=== PATIENT | female | born 1980 | race Caucasian/White ===

== ENCOUNTER 2020-10-08 10:48 | Inpatient (IN) | payer MEDICARE, OTHER ==
[~2020-10-08] VITALS: Ht 160 cm; Wt 86.2 kg
[~2020-10-08 10:48] MED LIST: PHENERGAN 25 MG25 M1 PO
[2020-10-08] MEDS ORDERED: HYDROCODONE-AC1 EAC1 PO (14:33)
[2020-10-08] MEDS ORDERED: TRESIBA FL100 UNIT/1 SC (14:33)
[2020-10-08] MEDS ORDERED: DRISDOL1250 MCG PO (14:34)
[2020-10-08] MEDS ORDERED: LOPRESSOR50 MG PO (14:35)
[2020-10-08] MEDS ORDERED: GLUCOPHAGE1000 MG PO (14:35)
[2020-10-08] MEDS ORDERED: CRESTOR10 MG PO (14:35)
[2020-10-08] MEDS ORDERED: SYNTHROID137 MCG PO (14:35)
[2020-10-08] MEDS ORDERED: ADDERALL XR 1010 MG PO (14:36)
[2020-10-08] MEDS ORDERED: NOVOLOG FL100 UNIT/1 SC (14:37)
[2020-10-08] MEDS ORDERED: ADDERALL 10 MG10 MG PO (14:37)
[2020-10-08 14:47] LABS: HEMOGLOBIN 10.7 gm/dl (12.3-15.3); RED BLOOD COUNT 3.6 M/UL (4.00-5.10); WHITE BLOOD COUNT 9.2 K/UL (4.5-11.0)
[2020-10-08 15:08] LABS: BUN/CREATININE RATIO 13 (0-10)
[2020-10-09 04:00] LABS: HEMOGLOBIN 9.6 gm/dl (12.3-15.3)
[2020-10-09 04:05] LABS: RED BLOOD COUNT 3.23 M/UL (4.00-5.10)
[2020-10-09 04:25] LABS: BUN/CREATININE RATIO 22 (0-10)
[2020-10-10 05:26] LABS: BUN/CREATININE RATIO 29 (0-10)
[2020-10-11 03:02] LABS: HEMOGLOBIN 9.6 gm/dl (12.3-15.3); RED BLOOD COUNT 3.25 M/UL (4.00-5.10)
[2020-10-11 03:15] LABS: WHITE BLOOD COUNT 13.6 K/UL (4.5-11.0)
[2020-10-11 03:32] LABS: BUN/CREATININE RATIO 30 (0-10)
[2020-10-11] MEDS ORDERED: DECADRON6 MG PO (12:45)
[2020-10-11] MEDS ORDERED: ELIQUIS2.5 MG PO (12:45)
== END 2020-10-11 16:15 | disposition home or self-care (01) | DRG 177 ==
LOC: ER1 10:48 → M/S 13:44 → CDU 13:44 → M/S 22:00
PROVIDERS: Emergency Medicine; ADMIT Internal Medicine Infectious Disease
PROC: 8E0ZXY6 Isolation (ICD-10-PCS; principal; 2020-10-08)
PROC: XW13325 Transfusion of Convalescent Plasma (Nonautologous) into Peripheral Vein, Percutaneous Approach, New Technology Group 5 (ICD-10-PCS; 2020-10-08)
DX: U07.1 COVID-19 (principal); J12.82 Pneumonia due to coronavirus disease 2019; J96.01 Acute respiratory failure with hypoxia; E87.3 Alkalosis; G47.419 Narcolepsy without cataplexy; D47.3 Essential (hemorrhagic) thrombocythemia; E11.42 Type 2 diabetes mellitus with diabetic polyneuropathy; E11.65 Type 2 diabetes mellitus with hyperglycemia; I10 Essential (primary) hypertension
CPT/HCPCS: 36415; 36600; 71045; 80048; 80053; 82803; 82962; 83036; 83735; 84443; 85025; 85379; 86900; 86901; 86927; 93005; 96372; 96374; 99285; J1100; J1650; J7030; U0002

== ENCOUNTER 2021-01-24 17:32 | Inpatient (IN) | payer MEDICARE, OTHER ==
[~2021-01-24] VITALS: Ht 162.6 cm; Wt 81.6 kg
[~2021-01-24 17:32] MED LIST changes: +ADDERALL 10 MG10 MG PO; +ADDERALL XR 1010 MG PO; +CRESTOR10 MG PO; +DECADRON6 MG PO; +DRISDOL1250 MCG PO; +ELIQUIS2.5 MG PO; +GLUCOPHAGE1000 MG PO; +HYDROCODONE-AC1 EAC1 PO; +LOPRESSOR50 MG PO; +NOVOLOG FL100 UNIT/1 SC; +SYNTHROID137 MCG PO; +TRESIBA FL100 UNIT/1 SC
[2021-01-24 17:54] LABS: HEMOGLOBIN 12.9 gm/dl (12.3-15.3); RED BLOOD COUNT 4.56 M/UL (4.00-5.10)
[2021-01-24 18:30] LABS: BUN/CREATININE RATIO 16 (0-10)
[2021-01-25 04:53] LABS: HEMOGLOBIN 12.5 gm/dl (12.3-15.3); RED BLOOD COUNT 4.48 M/UL (4.00-5.10)
[2021-01-25 04:57] LABS: WHITE BLOOD COUNT 11.7 K/UL (4.5-11.0)
[2021-01-25] MEDS ORDERED: GABAPENTIN300 MG PO (06:30)
[2021-01-25 07:07] LABS: BUN/CREATININE RATIO 18 (0-10)
[2021-01-25] MEDS ORDERED: CRESTOR40 MG PO (09:48)
[2021-01-25] MEDS ORDERED: ASPIRIN CHEWABL81 MG PO (09:48)
[2021-01-25] MEDS ORDERED: PROTONIX40 MG PO (09:48)
--- NOTE | 2021-01-25 16:53 | NUR ---
01/25/21 0646 REPORT CALLED TO JAH AT [facility]
[2021-01-27 13:11] LABS: PROTEIN C-FUNCTIONAL 168 % (73-180); PROTEIN S-FUNCTIONAL 103 % (63-140)
== END 2021-01-25 17:15 | disposition home or self-care (01) | DRG 65 ==
LOC: ER1 17:32 → M/S 18:17 → CDU 18:17 → M/S 20:29
PROVIDERS: Emergency Medicine; Psychiatry & Neurology Neurology; ADMIT Internal Medicine
DX: I63.9 Cerebral infarction, unspecified (principal); D68.59 Other primary thrombophilia; G81.94 Hemiplegia, unspecified affecting left nondominant side; N30.00 Acute cystitis without hematuria; E78.5 Hyperlipidemia, unspecified; Z20.822 Contact with and (suspected) exposure to COVID-19; I10 Essential (primary) hypertension; R29.810 Facial weakness; E11.40 Type 2 diabetes mellitus with diabetic neuropathy, unspecified; E11.65 Type 2 diabetes mellitus with hyperglycemia; R13.10 Dysphagia, unspecified; M32.9 Systemic lupus erythematosus, unspecified; D47.3 Essential (hemorrhagic) thrombocythemia; Z86.16 Personal history of COVID-19; Z79.82 Long term (current) use of aspirin; Z79.4 Long term (current) use of insulin; Z82.3 Family history of stroke; Z83.3 Family history of diabetes mellitus; Z88.6 Allergy status to analgesic agent; Z88.8 Allergy status to other drugs, medicaments and biological substances
CPT/HCPCS: ECHO; 36415; 70450; 70544; 70551; 71045; 80053; 80061; 80307; 81001; 81241; 82550; 82553; 82962; 83036; 83874; 84439; 84443; 84484; 84703; 85025; 85027; 85610; 85730; 87086; 93005; 93306; 93880; 97161; 99285; J2060; J2550; U0002

== ENCOUNTER → 2022-04-10 | Outpatient (CLI) | payer OTHER ==
[~2022-04-10] MED LIST changes: +ASPIRIN CHEWABL81 MG PO; +CRESTOR40 MG PO; +GABAPENTIN300 MG PO; +PROTONIX40 MG PO
== END ==
LOC: EMI 04-09 15:00 → KOH-I 13:41
DX: M51.36 Other intervertebral disc degeneration, lumbar region (principal); G81.90 Hemiplegia, unspecified affecting unspecified side; D64.9 Anemia, unspecified; E10.43 Type 1 diabetes mellitus with diabetic autonomic (poly)neuropathy; K31.84 Gastroparesis; G47.30 Sleep apnea, unspecified; E55.9 Vitamin D deficiency, unspecified; R29.6 Repeated falls
CPT/HCPCS: 72040; 72070; 72100; 72148